=== PATIENT | male | born 1985 | race American Indian/Alaskan Native ===

== ENCOUNTER 2017-06-25 16:43 | Emergency (ER) | payer SELFPAY ==
[2017-06-25 16:57] VITALS: BP 115/77
[2017-06-25 17:38] LABS: Hemoglobin 14.2 gm/dl (11.8-15.2); Mean Corpuscular HGB Conc 34 % (32-34); Mean Corpuscular Hemoglobin 31 pg (28-32); Mean Corpuscular Volume 93 fl (84-94); Platelet Count 184 K/mm3 (140-440); Red Blood Count 4.53 M/mm3 (3.65-5.03); Red Cell Distribution Width 12.6 % (13.2-15.2)
[2017-06-25 17:47] LABS: Alanine Aminotransferase 14 units/L (7-56); Albumin 4.2 g/dL (3.9-5); BUN/Creatinine Ratio 16; Blood Urea Nitrogen 14 mg/dL (9-20); Calcium 8.9 mg/dL (8.4-10.2); Hemolysis Index 4
[2017-06-25 17:49] LABS: Bacteria,Urine 1+ /HPF (Negative); Bilirubin,Urine NEG (Negative); Blood,Urine NEG (Negative); Color,Urine Yellow (Yellow); Mucus,Urine FEW /HPF; Protein,Urine <15 mg/dL mg/dL (Negative)
[2017-06-25 19:58] LABS: Band Neutrophils # (Manual) 0.1 K/mm3; Total Cells Counted 100
[2017-06-25 19:59] LABS: Anisocytosis 1+; Platelet Estimate Consistent w Auto
[2017-06-25] MEDS ORDERED: LIDOCAINE VISCOUS 2% PO ONE (20:02)
[2017-06-25] MEDS ORDERED: DECADRON PO ONE (20:02)
[2017-06-25] MEDS ORDERED: MOTRIN PO ONE (20:02)
[2017-06-25] MEDS ORDERED: ZITHROMAX PO ONE (20:04)
[2017-06-25] MEDS ORDERED: ROCEPHIN IM ONE (20:04)
--- NOTE | 2017-06-25 20:13 | Emergency Department Report ---
Chief Complaint: Pain General Stated Complaint: GLANDS SWOLLEN/CHEST PAIN Time Seen by Provider: 06/25/17 19:55 - HPI History of Present Illness: The patient is a 31-year-old male presents for evaluation of a number of complaints. The patient's first complaint is sore throat and neck gland swelling for the past 4 days. The patient also reports midsternal aching chest pain. the patient has a tertiary complaint of dysuria. He admits to unprotected intercourse and is concerned that he has an STD. The patient denies fever, trauma to the chest, cough, dyspnea, syncope, hemoptysis, unilateral leg swelling, recent immobilization, history of DVT or PE, recent cancer. - Exam Vital Signs: Vital Signs 06/25/17 16:53 Temperature 97.8 F Pulse Rate 60 Respiratory 18 Rate Blood Pressure 115/77 O2 Sat by Pulse 98 Oximetry MSE screening note: Focused history and physical exam performed. Due to findings the following was ordered: ED Medical Decision Making - Lab Data Result diagrams: 06/25/17 17:18 06/25/17 17:18 ED Disposition for MSE Condition: Stable
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
--- NOTE | 2017-06-25 21:46 | XRay Report ---
FINAL REPORT PROCEDURE: XR CHEST ROUTINE 2V TECHNIQUE: PA and lateral chest radiographs were obtained. CPT 75548 HISTORY: dyspnea COMPARISON: No prior studies are available for comparison. FINDINGS: Heart: Normal. Mediastinum/Vessels: Normal. Lungs/Pleural space: Normal. Bony thorax: No acute osseous abnormality. Other: IMPRESSION: Normal examination.
== END 2017-06-25 23:21 | disposition home or self-care (01) ==
LOC: ED 16:43
DX: J02.9 Acute pharyngitis, unspecified (principal); N34.2 Other urethritis; F17.200 Nicotine dependence, unspecified, uncomplicated; F12.10 Cannabis abuse, uncomplicated; F14.10 Cocaine abuse, uncomplicated; Z20.2 Contact with and (suspected) exposure to infections with a predominantly sexual mode of transmission
CPT/HCPCS: 36415; 71046; 80053; 81001; 85007; 85025; 96372; 99284; J0696; J1100